=== PATIENT | male | born 1980 | race Caucasian/White ===

== ENCOUNTER 2016-08-26 15:09 | Emergency (ER) | payer OTHER ==
[~2016-08-26] VITALS: Ht 182.9 cm; Wt 118.3 kg
[2016-08-26 15:11] VITALS: BP 116/80
== END 2016-08-26 16:04 | disposition home or self-care (01) ==
LOC: ED 15:50
DX: T21.01XA Burn of unspecified degree of chest wall, initial encounter (principal); X08.8XXA Exposure to other specified smoke, fire and flames, initial encounter; Y93.89 Activity, other specified; Y92.89 Other specified places as the place of occurrence of the external cause; Y99.8 Other external cause status
CPT/HCPCS: 99283

== ENCOUNTER 2017-05-25 21:47 | Emergency (ER) | payer OTHER ==
[~2017-05-25] VITALS: Ht 182.9 cm; Wt 119.3 kg
[2017-05-25 21:48] VITALS: BP 133/86
== END 2017-05-25 23:03 | disposition home or self-care (01) ==
LOC: ED 22:55
DX: M79.671 Pain in right foot (principal)
CPT/HCPCS: 99284

== ENCOUNTER 2019-06-05 22:29 | Emergency (ER) | payer OTHER ==
[~2019-06-05] VITALS: Ht 182.9 cm; Wt 111.0 kg
[2019-06-05 22:55] VITALS: BP 121/85
--- NOTE | 2019-06-05 22:56 | NUR ---
THIS IS A 38 YO M W/ C/O EPIGASTRIC PAIN X2 DAYS. PT STATES ITS WORSE WHEN LAYING DOWN AND APPROX 1 HOUR AFTER EATING. PT STATES THAT ITS WORSE W/ DEEP INSPIRATION. DENIES N/V/D. DENIES SOB. VS STABLE, RESP EVEN AND UNLABORED. NADN. PT IS RESTING ON GURNEY CONNECTED TO MONITORING, AWAITING ED EVAL.
[2019-06-05] MEDS ORDERED: MAALOX/HYOSCYAMINE/LIDOCAINE 45 ML BTL PO ONE (23:00)
--- NOTE | 2019-06-05 23:00 | NUR ---
MED NIGHAT FROM PHARMACY.
--- NOTE | 2019-06-05 23:07 | NUR ---
PT MEDICATED PER EMAR.
--- NOTE | 2019-06-05 23:35 | NUR ---
RAD IN ROOM.
--- NOTE | 2019-06-05 23:50 | NUR ---
PT REPORTS NO RELIEF OF PAIN AFTER MEDS. MIKE DREW NOTIFIED.
== END 2019-06-06 00:25 | disposition home or self-care (01) ==
LOC: ED 23:08
DX: K21.9 Gastro-esophageal reflux disease without esophagitis (principal); R94.31 Abnormal electrocardiogram [ECG] [EKG]
CPT/HCPCS: 71045; 93005; 99283

== ENCOUNTER 2020-01-02 17:13 | Emergency (ER) | payer OTHER ==
[~2020-01-02] VITALS: Ht 188 cm; Wt 116.0 kg
[2020-01-02 17:16] VITALS: BP 116/80
--- NOTE | 2020-01-02 18:07 | NUR ---
ERP WAS IN TO SEE PT. PT STATES THAT HE JUST NEEDS A COVID TEST FOR WORK. DENIES SOB. C/O DIARRHEA, MUSCLE ACHES, ETC MENTIONED IN TRIAGE NOTE. NO S/S OF DISTRESS.
--- NOTE | 2020-01-02 18:16 | NUR ---
D/C INSTRUCTIONS & HOME QUARANTINE INSTRUCTIONS RV'WD WITH PT, HE VERBALIZES UNDERSTANDING. INSTRUCTED PT TO RETURN TO ED FOR SOB OR OTHER CONCERNING SYMPTOMS. PT AMBULATED OUT OF ED WITHOUT DIFFICULTY.
== END 2020-01-02 18:18 | disposition home or self-care (01) ==
LOC: ED 18:14
DX: B34.9 Viral infection, unspecified (principal); R19.7 Diarrhea, unspecified; M79.10 Myalgia, unspecified site; K21.9 Gastro-esophageal reflux disease without esophagitis; Z87.891 Personal history of nicotine dependence
CPT/HCPCS: 99281